=== PATIENT | female | born 1940 | race Caucasian/White ===

== ENCOUNTER 2021-03-12 13:16 | Emergency (ER) | payer MEDICARE, MEDICAID, OTHER ==
[~2021-03-12] VITALS: Ht 160 cm; Wt 60.0 kg
--- NOTE | 2021-03-12 13:22 | NUR ---
homero after pt was bitten and had skin broken on her r. thigh by her neighbors monkey. 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 pt to bed with a steady gait. postioned to comfort. attached to monitors. vss. nadn. caro robles to bedside for evaluation.
[2021-03-12] MEDS ORDERED: L.E.T SOLUTION TP ONE (14:00)
[2021-03-12] MEDS ORDERED: RABIES IMMUNE GLOBULIN/PF 300 UNITS/ML,1ML IM ONE (14:00)
[2021-03-12] MEDS ORDERED: PLEASE ENTER ALLERGIES MC SCH (14:00)
[2021-03-12] MEDS ORDERED: RABIES VACCINE /PF 2.5 UNITS IM-VACC ONE (14:00)
[2021-03-12 15:18] VITALS: BP 129/75
--- NOTE | 2021-03-12 15:19 | NUR ---
Patient and Caregiver given discharge instructions and they have confirmed that they understand the instructions. Patient ambulatory with steady gait.
== END 2021-03-12 15:20 | disposition home or self-care (01) ==
LOC: ED 13:53
DX: S71.051A Open bite, right hip, initial encounter (principal); W64.XXXA Exposure to other animate mechanical forces, initial encounter; Y93.89 Activity, other specified; Y92.009 Unspecified place in unspecified non-institutional (private) residence as the place of occurrence of the external cause; Y99.8 Other external cause status
CPT/HCPCS: 90375; 90471; 90675; 96372

== ENCOUNTER 2021-03-15 17:19 | Emergency (ER) | payer OTHER, MEDICARE, MEDICAID ==
[~2021-03-15] VITALS: Ht 160 cm; Wt 58.0 kg
[2021-03-15 17:27] VITALS: BP 165/75
[2021-03-15] MEDS ORDERED: RABIES VACCINE /PF 2.5 UNITS IM-VACC ONE (18:30)
--- NOTE | 2021-03-15 18:47 | NUR ---
Patient given discharge instructions and they have confirmed that they understand the instructions. Patient ambulatory with steady gait.
== END 2021-03-15 18:48 | disposition home or self-care (01) ==
LOC: ED 18:21
DX: Z23 Encounter for immunization (principal)
CPT/HCPCS: 90471; 90675; 99283

== ENCOUNTER 2021-03-19 16:06 | Emergency (ER) | payer OTHER, MEDICARE, MEDICAID ==
[~2021-03-19] VITALS: Ht 157.5 cm; Wt 58.4 kg
[2021-03-19 16:26] VITALS: BP 190/94
[2021-03-19] MEDS ORDERED: RABIES VACCINE /PF 2.5 UNITS IM-VACC ONE (17:00)
--- NOTE | 2021-03-19 17:43 | NUR ---
Patient given discharge instructions and they have confirmed that they understand the instructions. Patient ambulatory with steady gait.
== END 2021-03-19 17:45 | disposition home or self-care (01) ==
LOC: ED 16:24
DX: Z23 Encounter for immunization (principal)
CPT/HCPCS: 90471; 90675; 99283

== ENCOUNTER 2021-03-25 18:23 | Emergency (ER) | payer OTHER, MEDICARE, MEDICAID ==
[~2021-03-25] VITALS: Ht 160 cm; Wt 57.6 kg
[2021-03-25 18:31] VITALS: BP 196/86
[2021-03-25] MEDS ORDERED: RABIES VACCINE /PF 2.5 UNITS IM-VACC ONE (19:00)
--- NOTE | 2021-03-25 20:18 | NUR ---
PT A/OX4, ALL NEEDS IN REACH, CALL LIGHT IN REACH, NAD, PT INFORMED THAT THIS RN IS WAITING FOR MEDICATIONS FROM THE PHARMACY
== END 2021-03-25 20:50 | disposition home or self-care (01) ==
LOC: ED 19:22
DX: S71.151D Open bite, right thigh, subsequent encounter (principal); Z23 Encounter for immunization; W64.XXXD Exposure to other animate mechanical forces, subsequent encounter
CPT/HCPCS: 90471; 90675

== ENCOUNTER → 2021-05-03 | Outpatient (CLI) | payer SELFPAY ==
[2021-05-03 14:07] LABS: BASOPHILS % (AUTO) 0 % (0-1); EOSINOPHILS % (AUTO) 4 % (1-7); LYMPHOCYTES % (AUTO) 37 % (22-44); MEAN CORPUSCULAR HEMOGLOBIN 31.7 pg (27.0-34.8); MEAN CORPUSCULAR HGB CONC 33.3 g/dL (32.4-35.8); MEAN PLATELET VOLUME 7.6 fL (7.4-10.4); MONOCYTES % (AUTO) 8 % (2-9); NEUTROPHILS % (AUTO) 51 % (42-75); PLATELET COUNT 230 x10^3/uL (130-400); RED BLOOD COUNT 4.18 x10^6/uL (3.82-5.3); RED CELL DISTRIBUTION WIDTH 13.7 % (9.6-15.2)
[2021-05-03 14:19] LABS: ALANINE AMINOTRANSFERASE 52 U/L (12-78); ALBUMIN 3.2 g/dL (3.4-5.0); ANION GAP 3 mmol/L (5-15); C-REACTIVE PROTEIN, QUANT 0.78 mg/dL (0.02-0.49); CHLORIDE 103 mmol/L (98-107); CREATININE 0.76 mg/dL (0.55-1.02)
[2021-05-03 14:21] LABS: ALKALINE PHOSPHATASE 101 U/L (45-117); BILIRUBIN,TOTAL 0.4 mg/dL (0.2-1.0); TOTAL PROTEIN 7.6 g/dL (6.4-8.2)
[2021-05-03 14:57] LABS: HCT (SEDRATE) 39.3 % (34.6-47.8)
== END | disposition home or self-care (01) ==
LOC: LAB 13:49
PROVIDERS: ATTEND Internal Medicine Infectious Disease
DX: B00.9 Herpesviral infection, unspecified (principal)
CPT/HCPCS: 36415; 80053; 85025; 85651; 86140